=== PATIENT | female | born 1970 ===

== ENCOUNTER → 2021-03-05 08:00 | Outpatient (CLI) | payer OTHER | END | disposition home or self-care (01) | LOC: LAB 08:00 → ADM 13:45 → EDSTATUS 03-08 13:45 → AMB-ENDOS 03-08 13:45 | PROVIDERS: ATTEND Surgery | DX: K59.09 Other constipation (principal); Z12.11 Encounter for screening for malignant neoplasm of colon; Z03.818 Encounter for observation for suspected exposure to other biological agents ruled out ==

== ENCOUNTER → 2021-05-10 | Day surgery (SDC) | payer OTHER | END | disposition home or self-care (01) | LOC: ADM 05-07 11:15 → AMB-ENDOS 08:34 | PROVIDERS: ATTEND Surgery | DX: K62.1 Rectal polyp (principal); Z20.822 Contact with and (suspected) exposure to COVID-19; Z12.11 Encounter for screening for malignant neoplasm of colon ==